=== PATIENT | male | born 1980 | race Two or more races ===

== ENCOUNTER 2025-01-26 12:18 | Outpatient (CLI) | payer OTHER, SELFPAY | END 2025-01-26 12:19 | disposition home or self-care (01) | LOC: AMB 03-01 08:07 | PROVIDERS: Visit Provider Student in an Organized Health Care Education/Training Program | DX: I21.4 Non-ST elevation (NSTEMI) myocardial infarction (principal) | CPT/HCPCS: A0425; A0427 ==